=== PATIENT | female | born 1975 | race Caucasian/White ===

== ENCOUNTER 2019-03-03 19:44 | Emergency (ER) | payer OTHER ==
[~2019-03-03] VITALS: Ht 170.2 cm; Wt 119.4 kg
[2019-03-03 19:55] VITALS: BP 123/85
--- NOTE | 2019-03-03 20:06 | NUR ---
PT AMBULATED BACK TO LOBBY. AWAITING AVAILABLE BED.
--- NOTE | 2019-03-03 20:45 | NUR ---
PT BIB DAUGHTER TO ER WITH C/O LEFT SIDE 10/10 MENESES SINCE 0130 AM. TRIED CONTROLLING WITH EXTRA STRENGTH TYLENOL AND ICE PACKS WITH NO RELIEF. LAST TYLENOL TAKEN AT 1500. PT HAS HX OF STROKE X 1 YEAR AGO. DENIES WEAKNESS, NUMBNESS. FACE SYMETRICAL. SPEECH CLEAR, SOMEWHAT DELAYED. STRENGHTH ON BOTH HANDS. PUPIL DAILTES 3 MM EQUALLY. MENESES ON LEFT SIDE OF THE HEAD SINCE MARKET RESEARCHER 10/, UNABLE TO LIE ON HER LFT SIDE. HURTS EVEN WITH SHAKING. PT HAS LOOP RECORDER PLACED IN LFT SIDE OF HEART IN 2018. PT AAOX4, ABLE TO MAKE HER NEEDS KNOWN. CONNECETD TO MONITOR, VS STABLE. MD NOTIFIED OF HER PREVIOUS HX OF STROKE, MD ASSESSING PT. IV STARTED ON HER RT AC 20 G. BLOOD DRAWN FOR THE LAB. WILL CONTINUE TO MONITOR PT. HX STROKE, MIGRANE, SEIZURE RX:- ELIQUIS, PRAZOSIN, TRAZADONE, ASPIRIN, FAMOTIDINE, OMEPRAZOLE, KEPPRA, IRON MULTIVITAMINS.
[2019-03-03] MEDS ORDERED: ONDANSETRON 4 MG/2 ML VIAL IVP ONE (21:00)
[2019-03-03] MEDS ORDERED: MORPHINE SULFATE 4 MG/ML SYR IVP ONE (21:00)
[2019-03-03 21:21] LABS: BASOPHILS # (AUTO) 0.1 K/uL (0.00-0.22); BASOPHILS % (AUTO) 0.8 % (0.0-2.0); EOSINOPHILS # (AUTO) 0.2 K/uL (0-0.4); EOSINOPHILS % (AUTO) 2.6 % (0.0-4.0); HEMATOCRIT 35.4 % (36-48); HEMOGLOBIN 11.5 g/dL (12.0-16.0); LYMPHOCYTES # (AUTO) 1.7 K/uL (2.5-16.5); LYMPHOCYTES % (AUTO) 23.6 % (20.5-51.1); MEAN CORPUSCULAR HEMOGLOBIN 30 pg (27-31); MEAN CORPUSCULAR HGB CONC 33 g/dL (33-37); MEAN CORPUSCULAR VOLUME 92.5 fL (80-94); MONOCYTES # (AUTO) 0.6 K/uL (0.8-1.0); MONOCYTES % (AUTO) 8.3 % (1.7-9.3); NEUTROPHILS # (AUTO) 4.7 K/uL (1.8-7.7); NEUTROPHILS % (AUTO) 64.7 % (42.2-75.2); PLATELET COUNT (AUTO) 314 K/uL (140-450); RED BLOOD CELL COUNT(AUTO) 3.82 MIL/uL (4.20-5.40); RED CELL DISTRIBUTION WIDTH 15.5 % (11.6-13.7); WHITE BLOOD COUNT (AUTO) 7.3 K/uL (4.8-10.8)
--- NOTE | 2019-03-03 21:25 | NUR ---
ASSUMED CARE OF PT AND RECEIVED REPORT FROM RICCARDO ALVAREZ
--- NOTE | 2019-03-03 21:30 | NUR ---
PT AT CT
[2019-03-03 21:34] LABS: PROTHROMBIN TIME 9.2 secs (10.8-13.4)
[2019-03-03 21:40] LABS: ANION GAP 12.8 (8-16); CARBON DIOXIDE 26.8 mmol/L (21-32); CREATININE 0.8 mg/dL (0.6-1.3); POTASSIUM 3.6 mmol/L (3.5-5.1); TOTAL BILIRUBIN 0.2 mg/dL (0.0-1.0)
[2019-03-03 21:42] LABS: CHOL/HDL RATIO 2.3 (1-4.5)
[2019-03-03 21:44] LABS: CREATINE KINASE MB 0.5 ng/mL (0-3.6)
--- NOTE | 2019-03-03 22:20 | NUR ---
PT RESTING IN BED COMFORTABLY, TALKING TO FAMILY. VSS. WILL CONTINUE TO MONITOR.
[2019-03-03 22:45] VITALS: BP 105/67
--- NOTE | 2019-03-03 22:45 | NUR ---
Patient discharged BY DR. MAY with v/s stable. Written and verbal after care instructions given and explained. Patient verbalized understanding. Ambulatory with steady gait. All questions addressed prior to discharge. Advised to follow up with PMD.
== END 2019-03-03 22:45 | disposition home or self-care (01) ==
LOC: MED 19:44
DX: G44.209 Tension-type headache, unspecified, not intractable (principal); F12.10 Cannabis abuse, uncomplicated; Z86.73 Personal history of transient ischemic attack (TIA), and cerebral infarction without residual deficits
CPT/HCPCS: 36415; 70450; 71045; 80053; 80061; 81002; 82550; 82553; 83880; 84484; 85025; 85379; 85610; 85730; 93005; 96374; 96375; 99284; J2270; J2405; Q0092

== ENCOUNTER 2019-08-12 19:36 | Emergency (ER) | payer OTHER ==
[~2019-08-12] VITALS: Ht 170.2 cm; Wt 111.1 kg
[2019-08-12 19:55] VITALS: BP 118/80
--- NOTE | 2019-08-12 19:55 | NUR ---
TO BED # 07 AMBULATORY
--- NOTE | 2019-08-12 20:00 | NUR ---
PT AMBULATED TO BATHROOM. RECIVED REPORT FROM MYNOR GU.
--- NOTE | 2019-08-12 20:05 | NUR ---
44 Y/O FEMALE PT BIB [facility] FOR C/O L FLANK PAIN AND MENESES, 9/10 X 1 WEEK. ADMITS TO N/D BUT NO EPISODES OF VOMITING. TOOK TYENOL WITH INEFFECTIVE RESULTS FOR PAIN. HAD CVA IN 2018 HAS L SIDED WEAKNESS BUT ABLE TO VERBALIZE NEEDS AND IS AMBULATORY. DENIES COUGH. AFEBRILE. RESPIRATIONS ARE EVEN AND UNLABORED. SKIN IS WARM AND DRY TO TOUCH. DAUGHTER AT BEDSIDE. BED IN LOWEST POSITION AND LOCKED IN PLACE. MEDHX: CVA, SEIZURES, HTN ALLERGIES: NKA
[2019-08-12] MEDS ORDERED: NACL 0.9% 1,000 ML IV ONE (20:25)
[2019-08-12] MEDS ORDERED: KETOROLAC 30 MG/ML VIAL IVP ONE (20:25)
[2019-08-12] MEDS ORDERED: ONDANSETRON 4 MG/2 ML VIAL IVP ONE (20:25)
--- NOTE | 2019-08-12 21:10 | NUR ---
18G PLACED IN R AC. IV FLUIDS NACL 1000ML RUNNING CONTINOUSLY. NO REDNESS, SWELLING OR PAIN NOTED IN IV SITE. IV PATENT AND ASYMPTOMATIC.
--- NOTE | 2019-08-12 22:02 | NUR ---
Patient discharged with v/s stable. Written and verbal after care instructions given and explained. Patient alert, oriented and verbalized understanding of instructions. Ambulatory with steady gait. All questions addressed prior to discharge. ID band removed. Patient advised to follow up with PMD. Rx of zofran, flomax, motrin, imodium, norco given. Patient educated on indication of medication including possible reaction and side effects. Opportunity to ask questions provided and answered.
[2019-08-12 22:05] VITALS: BP 108/62
== END 2019-08-12 22:02 | disposition home or self-care (01) ==
LOC: MED 19:36
DX: R10.9 Unspecified abdominal pain (principal); R51 Headache; R11.2 Nausea with vomiting, unspecified; R07.9 Chest pain, unspecified; R19.7 Diarrhea, unspecified; I10 Essential (primary) hypertension; Z86.73 Personal history of transient ischemic attack (TIA), and cerebral infarction without residual deficits; Z90.49 Acquired absence of other specified parts of digestive tract; Z98.890 Other specified postprocedural states
CPT/HCPCS: 81002; 81025; 96374; 96375; 99283; J1885; J2405; J7030

== ENCOUNTER 2019-08-16 18:29 | Emergency (ER) | payer OTHER ==
[~2019-08-16] VITALS: Ht 170.2 cm; Wt 111.1 kg
[2019-08-16 18:33] VITALS: BP 138/82
[2019-08-16] MEDS ORDERED: NACL 0.9% 1,000 ML IV ONE (19:28)
[2019-08-16] MEDS ORDERED: ONDANSETRON 4 MG/2 ML VIAL IVP ONE (19:30)
[2019-08-16] MEDS ORDERED: KETOROLAC 30 MG/ML VIAL IVP ONE (19:30)
--- NOTE | 2019-08-16 19:36 | NUR ---
BLOOD DRAWN ADN GIVEN TO LAB
--- NOTE | 2019-08-16 19:37 | NUR ---
PT ASSESSMENT COMPLETE. PT SEATED UPRIGHT IN BED. WILL CONTINUE TO MONITOR.
[2019-08-16 19:48] LABS: BASOPHILS % (AUTO) 0.5 % (0.0-2.0); EOSINOPHILS # (AUTO) 0.2 K/uL (0-0.4); EOSINOPHILS % (AUTO) 2.4 % (0.0-4.0); HEMATOCRIT 32.8 % (36-48); HEMOGLOBIN 10.5 g/dL (12.0-16.0); LYMPHOCYTES # (AUTO) 1.7 K/uL (2.5-16.5); MEAN CORPUSCULAR HEMOGLOBIN 29 pg (27-31); MEAN CORPUSCULAR HGB CONC 32 g/dL (33-37); MEAN CORPUSCULAR VOLUME 89.3 fL (80-94); MONOCYTES # (AUTO) 0.7 K/uL (0.8-1.0); MONOCYTES % (AUTO) 7.9 % (1.7-9.3); NEUTROPHILS # (AUTO) 6.3 K/uL (1.8-7.7); NEUTROPHILS % (AUTO) 70.2 % (42.2-75.2); PLATELET COUNT (AUTO) 395 K/uL (140-450); RED BLOOD CELL COUNT(AUTO) 3.68 MIL/uL (4.20-5.40); RED CELL DISTRIBUTION WIDTH 15.7 % (11.6-13.7)
--- NOTE | 2019-08-16 20:06 | NUR ---
PT TAKEN TO CT VIA WHEELCHAIR
[2019-08-16 20:14] LABS: CARBON DIOXIDE 28.4 mmol/L (21-32); CREATININE 0.7 mg/dL (0.6-1.3); TOTAL BILIRUBIN 0.2 mg/dL (0.0-1.0)
[2019-08-16 20:19] LABS: ANION GAP 12.2 (8-16); POTASSIUM 4.6 mmol/L (3.5-5.1)
--- NOTE | 2019-08-16 20:21 | NUR ---
PT RETURNED FROM CT VIA WHEELCHAIR
[2019-08-16 20:22] LABS: APPEARANCE,URINE CLEAR (CLEAR); BILIRUBIN,URINE NEGATIVE (NEGATIVE); BLOOD, URINE NEGATIVE (NEGATIVE); COLOR,URINE YELLOW (YELLOW); LEUKOCYTE ESTERASE ,URINE NEGATIVE (NEGATIVE); NITRITE, URINE NEGATIVE (NEGATIVE); UGLUCOSE NEGATIVE (NEGATIVE)
[2019-08-16 21:20] VITALS: BP 118/66
--- NOTE | 2019-08-16 21:20 | NUR ---
Patient discharged with v/s stable. Pt states 4/10 pain. Written and verbal after care instructions given and explained. Patient alert, oriented and verbalized understanding of instructions. Ambulatory with steady gait. All questions addressed prior to discharge. ID band removed. Patient advised to follow up with PMD and when to return to ER. Rx of Naprosyn given. Patient educated on indication of medication including possible reaction and side effects. Opportunity to ask questions provided and answered.
== END 2019-08-16 21:20 | disposition home or self-care (01) ==
LOC: MED 18:29
DX: R10.9 Unspecified abdominal pain (principal); R51 Headache; M79.10 Myalgia, unspecified site; K59.00 Constipation, unspecified; I10 Essential (primary) hypertension; Z86.73 Personal history of transient ischemic attack (TIA), and cerebral infarction without residual deficits; Z95.0 Presence of cardiac pacemaker; Z90.49 Acquired absence of other specified parts of digestive tract; Z98.890 Other specified postprocedural states; Z87.442 Personal history of urinary calculi
CPT/HCPCS: 36415; 74176; 80053; 81003; 81025; 83690; 85025; 96374; 96375; 99284; J1885; J2405; J7030

== ENCOUNTER 2021-02-10 12:39 | Emergency (ER) | payer OTHER ==
[~2021-02-10] VITALS: Ht 170.2 cm; Wt 120.7 kg
[2021-02-10 12:59] VITALS: BP 131/86
--- NOTE | 2021-02-10 13:17 | NUR ---
45/F presents to ED with c/o right upper quadrant abdominal pain. Patient states for 4 days she has been having worsening abdominal pain in her right upper quadrant, radiating to her lower to mid back. Patient states "I had my gall bladder removed but the pain feels the same." States she took 2 Tylenol at home with no relief, states she has episodes of nausea and headache and "pulsating" lower back pain, denies vomiting and diarrhea, denies dysuria or hematuria.
[2021-02-10] MEDS: ONDANSETRON 4 MG/2 ML VIAL IVP ONE (15:10)
[2021-02-10] MEDS: MORPHINE SULFATE 4 MG/ML SYR IVP ONE (15:10)
--- NOTE | 2021-02-10 15:14 | NUR ---
Patient taken to CT by wheel chair.
[2021-02-10 15:20] LABS: BASOPHILS % (AUTO) 0.4 % (0.0-2.0); EOSINOPHILS # (AUTO) 0.2 K/uL (0-0.4); EOSINOPHILS % (AUTO) 2.3 % (0.0-4.0); HEMATOCRIT 29.4 % (36-48); LYMPHOCYTES % (AUTO) 20.4 % (20.5-51.1); MEAN CORPUSCULAR HEMOGLOBIN 25 pg (27-31); MEAN CORPUSCULAR HGB CONC 31 g/dL (33-37); MONOCYTES # (AUTO) 0.9 K/uL (0.8-1.0); NEUTROPHILS # (AUTO) 6.8 K/uL (1.8-7.7); NEUTROPHILS % (AUTO) 67.9 % (42.2-75.2); PLATELET COUNT (AUTO) 424 K/uL (140-450); RED BLOOD CELL COUNT(AUTO) 3.64 MIL/uL (4.20-5.40); RED CELL DISTRIBUTION WIDTH 20.6 % (11.6-13.7); WHITE BLOOD COUNT (AUTO) 9.9 K/uL (4.8-10.8)
[2021-02-10 15:40] LABS: ALBUMIN 3.3 g/dL (3.4-5.0); ANION GAP 10.6 (8-16); CREATININE 0.6 mg/dL (0.6-1.3); POTASSIUM 4.6 mmol/L (3.5-5.1); TOTAL BILIRUBIN 0.3 mg/dL (0.0-1.0)
[2021-02-10] MEDS ORDERED: MIRABULK PO (16:44)
[2021-02-10] MEDS ORDERED: IBUP-2213 PO (16:44)
[2021-02-10 17:07] VITALS: BP 108/72
== END 2021-02-10 17:08 | disposition home or self-care (01) ==
LOC: MED 12:39
DX: R10.11 Right upper quadrant pain (principal); R11.0 Nausea; M54.5 Low back pain; I10 Essential (primary) hypertension; Z86.73 Personal history of transient ischemic attack (TIA), and cerebral infarction without residual deficits; Z90.49 Acquired absence of other specified parts of digestive tract; Z79.899 Other long term (current) drug therapy; Z98.890 Other specified postprocedural states
CPT/HCPCS: 36415; 74176; 80053; 81002; 81025; 83690; 85025; 96374; 96375; 99284; J2270; J2405

== ENCOUNTER 2021-05-29 21:56 | Emergency (ER) | payer OTHER ==
[~2021-05-29] VITALS: Ht 170.2 cm; Wt 117.9 kg
[~2021-05-29 21:56] MED LIST: IBUP-2213 PO; MIRABULK PO
[2021-05-29 22:47] VITALS: BP 141/86
--- NOTE | 2021-05-29 23:00 | NUR ---
AMBULATED BACK TO LOBBY
--- NOTE | 2021-05-29 23:10 | NUR ---
AMBULATED TO BED 1
--- NOTE | 2021-05-29 23:10 | NUR ---
RECEIVED IN BED 1 WITH C/O RIGHT EYELID DROOP. LEFT EYELID HALF CLOSED. DENIES PAIN AT THIS TIME
--- NOTE | 2021-05-29 23:20 | NUR ---
RETURNED FROM CT
[2021-05-29 23:34] LABS: BASOPHILS # (AUTO) 0.1 K/uL (0.00-0.22); BASOPHILS % (AUTO) 0.6 % (0.0-2.0); EOSINOPHILS # (AUTO) 0.2 K/uL (0-0.4); EOSINOPHILS % (AUTO) 2.5 % (0.0-4.0); HEMATOCRIT 30.6 % (36-48); HEMOGLOBIN 9.6 g/dL (12.0-16.0); LYMPHOCYTES # (AUTO) 2.8 K/uL (2.5-16.5); MEAN CORPUSCULAR HEMOGLOBIN 23 pg (27-31); MEAN CORPUSCULAR HGB CONC 31 g/dL (33-37); MEAN CORPUSCULAR VOLUME 74.8 fL (80-94); MONOCYTES # (AUTO) 0.8 K/uL (0.8-1.0); MONOCYTES % (AUTO) 8.5 % (1.7-9.3); NEUTROPHILS # (AUTO) 5.9 K/uL (1.8-7.7); NEUTROPHILS % (AUTO) 60.4 % (42.2-75.2); PLATELET COUNT (AUTO) 487 K/uL (140-450); RED BLOOD CELL COUNT(AUTO) 4.09 MIL/uL (4.20-5.40); RED CELL DISTRIBUTION WIDTH 19.1 % (11.6-13.7); WHITE BLOOD COUNT (AUTO) 9.8 K/uL (4.8-10.8)
[2021-05-29 23:52] LABS: ANION GAP 11.3 (8-16); CARBON DIOXIDE 25.6 mmol/L (21-32); CREATININE 0.7 mg/dL (0.6-1.3); POTASSIUM 3.9 mmol/L (3.5-5.1); TOTAL BILIRUBIN 0.2 mg/dL (0.0-1.0)
[2021-05-30 02:00] VITALS: BP 128/74
--- NOTE | 2021-05-30 02:00 | NUR ---
AWAKJE AND ALERT, AWAITING REEXAM AND DISPOSITION
[2021-05-30] MEDS ORDERED: PROCHLORPERAZINE 10 MG/2 ML VIAL IM ONE (03:40)
[2021-05-30] MEDS ORDERED: KETOROLAC 30 MG/ML VIAL IM ONE (03:40)
[2021-05-30] MEDS ORDERED: diphenhydrAMINE 50 MG/ML VIAL IM ONE (03:40)
--- NOTE | 2021-05-30 03:50 | NUR ---
Patient does not wish to proceed with medical care recommended by . Patient given information related to possible complications, up to and including , which could occur as a result of leaving hospital at this time. Patient verbalizes understanding of risks involved leaving against medical advice. Patient has signed AMA form.
--- NOTE | 2021-05-30 03:50 | NUR ---
Note fabiana in EDM - 05/30/21 at 0411 by TEN Patient discharged with v/s stable. Written and verbal after care instructions given and explained. Patient verbalized understanding. Ambulatory with steady gait. All questions addressed prior to discharge. Advised to follow up with PMD.
== END 2021-05-30 03:50 | disposition left against medical advice (07) ==
LOC: MED 21:56
DX: R29.810 Facial weakness (principal); G43.909 Migraine, unspecified, not intractable, without status migrainosus; I10 Essential (primary) hypertension; F32.9 Major depressive disorder, single episode, unspecified; Z90.49 Acquired absence of other specified parts of digestive tract; Z98.890 Other specified postprocedural states; Z79.899 Other long term (current) drug therapy; Z86.73 Personal history of transient ischemic attack (TIA), and cerebral infarction without residual deficits
CPT/HCPCS: 36415; 70450; 70496; 70498; 71045; 80053; 84484; 85025; 93005; 96372; 99285; J0780; J1200; J1885; Q0092; Q9967

== ENCOUNTER 2021-08-05 09:19 | Emergency (ER) | payer OTHER, SELFPAY ==
[~2021-08-05] VITALS: Ht 170.2 cm; Wt 117.9 kg
[2021-08-05 09:24] VITALS: BP 117/75
--- NOTE | 2021-08-05 10:24 | NUR ---
covid swab collected and walked to lab
[2021-08-05] MEDS ORDERED: ROB PO (10:25)
[2021-08-05 10:40] VITALS: BP 117/75
--- NOTE | 2021-08-05 10:41 | NUR ---
Patient discharged with v/s stable. Written and verbal after care instructions given and explained. Patient alert, oriented and verbalized understanding of instructions. Ambulatory with steady gait. All questions addressed prior to discharge. ID band removed. Patient advised to follow up with PMD. Rx of robatussin given. Patient educated on indication of medication including possible reaction and side effects. Opportunity to ask questions provided and answered.
--- NOTE | 2021-08-05 10:41 | NUR ---
pt assessed and discharged by Dr Holloway
== END 2021-08-05 10:41 | disposition home or self-care (01) ==
LOC: MED 09:19
DX: U07.1 COVID-19 (principal); J06.9 Acute upper respiratory infection, unspecified; I10 Essential (primary) hypertension; Z86.73 Personal history of transient ischemic attack (TIA), and cerebral infarction without residual deficits; Z90.49 Acquired absence of other specified parts of digestive tract; Z86.69 Personal history of other diseases of the nervous system and sense organs; Z98.890 Other specified postprocedural states; Z79.899 Other long term (current) drug therapy; Z79.1 Long term (current) use of non-steroidal anti-inflammatories (NSAID)
CPT/HCPCS: 99283; U0003

== ENCOUNTER 2022-08-17 20:11 | Inpatient (IN) | payer OTHER ==
[~2022-08-17] VITALS: Ht 170.2 cm; Wt 99.8 kg
[~2022-08-17 20:11] MED LIST changes: +ROB PO
[2022-08-17 20:27] VITALS: BP 113/72
--- NOTE | 2022-08-17 20:31 | NUR ---
TO LOBBY A/W BED AMBULATORY
--- NOTE | 2022-08-17 21:05 | NUR ---
Corrie jung in [facility] - 08/17/22 at 2108 by [email or web address] PT TO BED 6
--- NOTE | 2022-08-17 21:08 | NUR ---
PT TAKEN TO BED 5
[2022-08-17] MEDS ORDERED: NACL 0.9% 1,000 ML IV SCH (21:15)
[2022-08-17] MEDS ORDERED: ONDANSETRON 4 MG/2 ML VIAL IVP ONE (21:15)
--- NOTE | 2022-08-17 21:33 | NUR ---
labs collected and given to yard labor supervisor
[2022-08-17 21:37] LABS: BASOPHILS % (AUTO) 0.3 % (0.0-2.0); EOSINOPHILS % (AUTO) 0.4 % (0.0-4.0); HEMATOCRIT 27.5 % (36-48); HEMOGLOBIN 8.3 g/dL (12.0-16.0); LYMPHOCYTES # (AUTO) 1.4 K/uL (2.5-16.5); LYMPHOCYTES % (AUTO) 12.3 % (20.5-51.1); MEAN CORPUSCULAR HEMOGLOBIN 20 pg (27-31); MEAN CORPUSCULAR HGB CONC 30 g/dL (33-37); MEAN CORPUSCULAR VOLUME 65.6 fL (80-94); MONOCYTES # (AUTO) 0.5 K/uL (0.8-1.0); MONOCYTES % (AUTO) 4.8 % (1.7-9.3); NEUTROPHILS # (AUTO) 9.4 K/uL (1.8-7.7); NEUTROPHILS % (AUTO) 82.2 % (42.2-75.2); PLATELET COUNT (AUTO) 372 K/uL (140-450); RED BLOOD CELL COUNT(AUTO) 4.19 MIL/uL (4.20-5.40); RED CELL DISTRIBUTION WIDTH 19.5 % (11.6-13.7); WHITE BLOOD COUNT (AUTO) 11.4 K/uL (4.8-10.8)
--- NOTE | 2022-08-17 21:38 | NUR ---
Dr. Hunt examining patient.
[2022-08-17 21:40] LABS: APPEARANCE,URINE SL CLOUDY (CLEAR); BILIRUBIN,URINE NEGATIVE (NEGATIVE); BLOOD, URINE 3+ (NEGATIVE); COLOR,URINE YELLOW (YELLOW); LEUKOCYTE ESTERASE ,URINE NEGATIVE (NEGATIVE); NITRITE, URINE NEGATIVE (NEGATIVE); PH,URINE 6.5 (5.0-9.0); UGLUCOSE 3+ (NEGATIVE)
[2022-08-17] MEDS ORDERED: MORPHINE SULFATE 4 MG/ML SYR IVP ONE (21:45)
[2022-08-17] MEDS ORDERED: MORPHINE SULFATE 4 MG/ML SYR ONE (21:47)
[2022-08-17 21:51] LABS: OTHER CASTS, URINE None Seen /LPF (None Seen); RBC,URINE 11-20 (MOD) /HPF (0-5); WBC,URINE 0-5 /HPF (0-5)
--- NOTE | 2022-08-17 21:56 | NUR ---
Dr. Hunt by bedside
[2022-08-17 21:59] LABS: CARBON DIOXIDE 25.7 mmol/L (21-32); CREATININE 0.8 mg/dL (0.6-1.3); POTASSIUM 3.7 mmol/L (3.5-5.1); TOTAL BILIRUBIN 0.6 mg/dL (0.0-1.0)
--- NOTE | 2022-08-17 22:25 | NUR ---
COVID SWAB COLLECTED AND SENT TO LAB
--- NOTE | 2022-08-17 22:26 | NUR ---
PT RETURN FROM RADIOLOGY
[2022-08-18] MEDS ORDERED: LEVOFLOXACIN 500 MG/D5W PREMIX 100 ML IV ONE (00:10)
[2022-08-18] MEDS ORDERED: metroNIDAZOLE 500 MG/NS PREMIX 100 ML IV ONE (00:10)
--- NOTE | 2022-08-18 00:37 | NUR ---
BLOOD CULTURES ORDERD AND COLLECTED
--- NOTE | 2022-08-18 00:53 | NUR ---
PENDING ADMISSION ORDERS
[2022-08-18] MEDS ORDERED: MORPHINE SULFATE 4 MG/ML SYR IVP ONE (00:55)
--- NOTE | 2022-08-18 00:58 | NUR ---
Pt assisted to restroom. Gait steady.
--- NOTE | 2022-08-18 01:15 | NUR ---
C/o abd pain 02/08 and morphine given as ordered
--- NOTE | 2022-08-18 01:21 | NUR ---
Note fabiana in EDM - 08/18/22 at 0244 by [email or web address] Patient discharged with v/s stable. Written and verbal after care instructions given and explained. Patient verbalized understanding. Ambulatory with steady gait. All questions addressed prior to discharge. Advised to follow up with PMD.
--- NOTE | 2022-08-18 01:48 | NUR ---
Resting comfortably at this time. No s/s discomfort.
[2022-08-18] MEDS ORDERED: FOLI1TAB90 PO (03:25)
[2022-08-18] MEDS ORDERED: PANT40EC56 PO (03:25)
[2022-08-18] MEDS ORDERED: METH-1213 PO (03:25)
[2022-08-18] MEDS ORDERED: FREM225A SQ (03:25)
--- NOTE | 2022-08-18 03:28 | NUR ---
MED RECONCILE AND BELONGINGS COMPLETED
--- NOTE | 2022-08-18 04:10 | NUR ---
Assisted to restroom, gait steady.
[2022-08-18] MEDS: NACL 0.9% 1,000 ML IV SCH ×3 (04:32→15:41)
[2022-08-18] MEDS: ACETAMINOPHEN 325 MG TAB PO PRN (04:42)
[2022-08-18] MEDS: ONDANSETRON 4 MG/2 ML VIAL IVP PRN ×4 (04:43→20:21)
--- NOTE | 2022-08-18 04:45 | NUR ---
Pt c/o nausea and abdominal pain. Zofran and tylenol given as ordered.
--- NOTE | 2022-08-18 05:20 | NUR ---
Ambulated to restroom gait steady
[2022-08-18] MEDS: MORPHINE SULFATE 2 MG/ML SYR IVP PRN ×3 (05:28→14:14)
--- NOTE | 2022-08-18 05:28 | NUR ---
c/o 01/09 abd pain. morphine given as ordered.
--- NOTE | 2022-08-18 05:50 | NUR ---
PT MOVED TO ER 9
--- NOTE | 2022-08-18 07:27 | NUR ---
Report given for transfer of care to [facility]
--- NOTE | 2022-08-18 07:28 | NUR ---
Report recieved from RICCARDO Paz for transfer of care.
[2022-08-18] MEDS ORDERED: DEXTROSE 50% 50 ML SYR IVP PRN (07:35)
[2022-08-18] MEDS ORDERED: LEVOFLOXACIN 750 MG/D5W PREMIX 150 ML IV SCH (07:35)
--- NOTE | 2022-08-18 08:08 | NUR ---
Patient will be admitted to care of Dr. Erickson. Admited to Telemetry. Will go to room ICU 6. Belongings list completed. Report to RICCARDO Suazo .
[2022-08-18 08:20] VITALS: BP 137/106
--- NOTE | 2022-08-18 08:20 | NUR ---
Admitted from , with chief complaint of abdominal pain for 3 days radiate to lower back. diarrhea with blood per pt statement. 47 y/o ,Female, Cooperative, oriented to call light, bed, phone,television, bathroom, smoking policy, visiting hours, procedures, ID bracelet on. Belongings list checked.
[2022-08-18] MEDS: PANTOPRAZOLE 40 MG INJ VIAL IVP SCH ×2 (08:48→20:20)
--- NOTE | 2022-08-18 10:06 | NUR ---
PATIENT HAS BEEN SCREENED AND CATEGORIZED MODERATE NUTRITION RISK. PATIENT WILL BE SEEN WITHIN 3-5 DAYS OF ADMISSION. REVIEWED BY ZACH GREEN RD
[2022-08-18] MEDS: BLOOD GLUCOSE MONITORING 1 DEV DEV FS SCH ×3 (11:50→20:58)
--- NOTE | 2022-08-18 11:57 | NUR ---
PATIENT ABLE TO HAVE LOOSE GREENISH BM, UNABLE TO COLLECT MIXED WITH URINE. WILL TRY AGAIN LATER.
[2022-08-18 12:00] VITALS: BP 109/70
[2022-08-18] MEDS: INSULIN LISPRO SLIDING SCALE 100 UNITS/ML VIAL SUBQ PRN ×3 (12:09→20:57)
[2022-08-18] MEDS: metroNIDAZOLE 500 MG/NS PREMIX 100 ML IV SCH ×2 (12:43→20:20)
[2022-08-18 16:00] VITALS: BP 103/63
[2022-08-18] MEDS: MORPHINE SULFATE 4 MG/ML SYR IVP PRN ×2 (17:44→23:59)
--- NOTE | 2022-08-18 18:46 | NUR ---
all needs mets. vital sign stable, afebrile. no s/s of distress. iv access patent, intact , no swelling or infiltration noted. ivf infusing well. updated about the poc. verbalized understanding.
--- NOTE | 2022-08-18 19:00 | NUR ---
rec'd pt form rn AURY to assume plan of care. Pt's A/Ox4, c/o pain , morphine not due yet, pt understood. asking for ativan instead. Pt's ambulates to the BSC with no assist, gait steady as observed. Stable vital signs. Pt's tele status, just waiting for open bed from tele. Basic bedside needs attended. POC discussed safety and ski care protocol on progress. Call light in reach.
[2022-08-18] MEDS: LORazepam 2 MG/ML VIAL IVP PRN (20:21)
[2022-08-18 23:28] VITALS: BP 102/61
[2022-08-19] MEDS: NACL 0.9% 1,000 ML IV SCH ×3 (00:15→19:50)
--- NOTE | 2022-08-19 02:52 | NUR ---
Report was given to quarrying manager Melvina to assume plan of care. Pt was aware she'll be transferred to MS/TELE to room 115. Pt's stable, resting comfortably. Still having diarrhea. Used bedside commode. No resp distress, on room air sats .97%. Self care, independent and asking pain intermittently. On IVF NS 125cc/hr and on atbx therapy. Pt said will notify family about her transfer to another unit. All belongings with the pt at the bedside.
--- NOTE | 2022-08-19 03:10 | NUR ---
RECEIVED PATIENT FROM ICU VIA WHEELCHAIR AAOX4 ON ROOM AIR. NO DISTRESS. NO COMPLAINTS OF PAIN AT THIS TIME. AMBULATORY. CALL LIGHT ON EASY REACH. SAFETY MEASURES IN PLACE. HANGED A NEW BAG OF IVF NS INFUSING 125 ML/HR.
--- NOTE | 2022-08-19 03:10 | NUR ---
0300: wheeled out pt to tele room 115, transported by warehouse shift supervisor Martin. pt has cell phone, cell communications representative and clothings as witnessed by warehouse shift supervisor.
[2022-08-19] MEDS: LORazepam 2 MG/ML VIAL IVP PRN ×2 (03:29→11:25)
[2022-08-19 04:00] VITALS: BP 110/71
[2022-08-19] MEDS: metroNIDAZOLE 500 MG/NS PREMIX 100 ML IV SCH ×3 (04:46→20:24)
[2022-08-19] MEDS: INSULIN LISPRO SLIDING SCALE 100 UNITS/ML VIAL SUBQ PRN ×3 (06:40→21:26)
[2022-08-19] MEDS: BLOOD GLUCOSE MONITORING 1 DEV DEV FS SCH ×5 (06:40→21:22)
--- NOTE | 2022-08-19 06:40 | NUR ---
CHECKED BLOOD SUGAR WAS 192, ADMINISTERED HUMALOG INSULIN ORDERED PER SLIDING SCALE.
--- NOTE | 2022-08-19 07:29 | NUR ---
GAVE REPORT TO AM NURSE TREJO FOR CONTINUITY OF CARE.
[2022-08-19 07:31] LABS: BASOPHILS % (AUTO) 0.4 % (0.0-2.0); EOSINOPHILS # (AUTO) 0.2 K/uL (0-0.4); HEMATOCRIT 25.4 % (36-48); HEMOGLOBIN 7.6 g/dL (12.0-16.0); LYMPHOCYTES # (AUTO) 1.3 K/uL (2.5-16.5); LYMPHOCYTES % (AUTO) 22.2 % (20.5-51.1); MEAN CORPUSCULAR HEMOGLOBIN 20 pg (27-31); MEAN CORPUSCULAR HGB CONC 30 g/dL (33-37); MEAN CORPUSCULAR VOLUME 67.8 fL (80-94); MONOCYTES # (AUTO) 0.6 K/uL (0.8-1.0); MONOCYTES % (AUTO) 9.5 % (1.7-9.3); NEUTROPHILS # (AUTO) 3.9 K/uL (1.8-7.7); NEUTROPHILS % (AUTO) 64.9 % (42.2-75.2); PLATELET COUNT (AUTO) 301 K/uL (140-450); RED BLOOD CELL COUNT(AUTO) 3.75 MIL/uL (4.20-5.40); RED CELL DISTRIBUTION WIDTH 19.4 % (11.6-13.7)
[2022-08-19 08:00] VITALS: BP 117/78
[2022-08-19] MEDS: LEVOFLOXACIN 750 MG/D5W PREMIX 150 ML IV SCH (09:00)
[2022-08-19] MEDS: PANTOPRAZOLE 40 MG INJ VIAL IVP SCH ×2 (09:00→20:33)
[2022-08-19] MEDS: ENOXAPARIN 40 MG/0.4 ML SYR SUBQ SCH (09:00)
[2022-08-19 09:25] LABS: ALBUMIN 2.8 g/dL (3.4-5.0); ANION GAP 12.9 (8-16); CARBON DIOXIDE 24.4 mmol/L (21-32); CREATININE 0.6 mg/dL (0.6-1.3); MAGNESIUM 1.6 mg/dL (1.8-2.4); POTASSIUM 3.3 mmol/L (3.5-5.1); TOTAL BILIRUBIN 0.5 mg/dL (0.0-1.0)
[2022-08-19] MEDS: ONDANSETRON 4 MG/2 ML VIAL IVP PRN ×3 (10:47→17:22)
[2022-08-19] MEDS: MORPHINE SULFATE 4 MG/ML SYR IVP PRN ×3 (10:55→17:22)
--- NOTE | 2022-08-19 15:17 | NUR ---
DC PLANNING SW MET WITH PT AT BEDSIDE TO COMPLETE ASSESSMENT. PT ALERT AND ORIENTED AND ABLE TO PROVIDE ALL OF HER OWN INFORMATION. PT REPORTS RESIDING IN A TWO STORY HOME WITH HER FAMILY (, DAUGHTER AND MOTHER) AT THE ADDRESS LISTED ON FILE. PT IDENTIFIED PATRICA RAMOS, PARTNER, AND ARTHUR WILEY, MOM, EMERGENCY CONTACTS. PT DENIES AD IN PLACE AND ACCEPTED AD OFFERED BY SW. PT REPORTS LAST VISIT W/PCP 6 MONTHS AGO. PT REPORTS MEETING WITH SEVERAL DR'S OVER THE LAST FEW MONTHS. PT REPORTS LAST VISIT WITH LABORATORY MONITOR IN JUL, GI IN JUN, DENTAL HYGIENIST MOBILE COORDINATOR IN DECEMBER, AND UROLOGIST ON AUG 04. PT REPORTS MEDICATION COMPLIANCE AND REPORTS RECEIVING MEDICATION FROM [facility] OF [address] ON [address] IN [place], WHEN NEEDED. PT REPORTS UTILIZING FWW, [place] AND REPORTS SHE REQUIRES OCCASIONAL ASSISTANCE WITH ADL'S THAT HER FAMILY AIDS WITH. PT DENIES HX OF DIABETES, DIALYSIS TX. PT REPORTS MENTAL HEALTH HX OF DEPRESSION AND REPORTS HAVING RX OF PROZAC WHICH SHE HAS NOT BEGAN TAKING. PT REPORTS SHE WILL MOST LIKELY START SOON. PT REPORTS ATTENDING SUPPORT GROUP ON TUESDAYS TO AID IN DEPRESSION SX . PT REPORTS FINDING SUPPORT GROUPS HELPFUL. PT DENIES HX OF HH, SNF PLACEMENT. PT REPORTS DC PLAN IS TO RETURN HOME FAMILY PROVIDING TRANSPORTATION, WHEN MEDICALLY STABLE. Addendum: 08/19/22 at 1520 by Won SMALLWOOD Amended: Links added.
--- NOTE | 2022-08-19 19:35 | NUR ---
RECEIVED PATIENT IN BED LYING, APPEARS COMFORTABLE ON ROOM AIR. NO COMPLAINTS OF PAIN AT THIS TIME. ABLE TO AMBULATE TO THE RESTROOM W/O ASSIST. IVF NS INFUSING AT 125 ML/HR. CALL LIGHT WITHIN REACH. BED WHEELS LOCKED FOR SAFETY.
--- NOTE | 2022-08-19 20:24 | NUR ---
ADMINISTERED SCHEDULED DUE MEDICATION.
[2022-08-19] MEDS: MORPHINE SULFATE 2 MG/ML SYR IVP PRN (22:14)
[2022-08-20] VITALS: BP 99/59
[2022-08-20] MEDS: NACL 0.9% 1,000 ML IV SCH ×3 (03:50→21:44)
[2022-08-20 04:00] VITALS: BP 96/52
[2022-08-20] MEDS: ONDANSETRON 4 MG/2 ML VIAL IVP PRN ×3 (04:27→22:16)
[2022-08-20] MEDS: metroNIDAZOLE 500 MG/NS PREMIX 100 ML IV SCH ×3 (04:27→21:45)
[2022-08-20] MEDS: MORPHINE SULFATE 2 MG/ML SYR IVP PRN ×3 (04:28→15:04)
--- NOTE | 2022-08-20 04:28 | NUR ---
COMPLAINED OF MODERATE ABDOMINAL PAIN, MEDICATED WITH MORPHINE IVP.
--- NOTE | 2022-08-20 05:05 | NUR ---
PLACED A CALL TO DR SMALLS D/T BP-96/52 P-91 AND POTASSIUM LEVEL 3.[address] SMALLS GAVE ORDERS, NOTED AND CARRIED OUT.
[2022-08-20] MEDS: NACL 0.9% 500 ML IV SCH ×6 (05:15→07:50)
[2022-08-20] MEDS ORDERED: POTASSIUM CHLORIDE 10 MEQ TABER PO ONE (05:15)
[2022-08-20] MEDS: BLOOD GLUCOSE MONITORING 1 DEV DEV FS SCH ×4 (06:38→21:48)
[2022-08-20] MEDS: INSULIN LISPRO SLIDING SCALE 100 UNITS/ML VIAL SUBQ PRN ×4 (06:38→21:47)
[2022-08-20] MEDS: ACETAMINOPHEN 325 MG TAB PO PRN ×2 (06:52→18:28)
--- NOTE | 2022-08-20 06:52 | NUR ---
PATIENT COMPLAINED OF HEADACHE, MEDICATED WITH TYLENOL PRN.
--- NOTE | 2022-08-20 07:26 | NUR ---
BEDSIDE REPORT GIVEN TO AM SHIFT NURSE ABBY FOR CONTINUITY OF CARE. PATIENT HAD XI SOFT BM THROUGHOUT THE SHIFT. V/S: BP 115/70 P-85 O2 SAT- 97 R-18 T-97.1.
[2022-08-20 08:00] VITALS: BP 109/67
[2022-08-20] MEDS ORDERED: MAG SULF 2000 MG/WATER PREMIX 50 ML IV SCH (09:00)
[2022-08-20] MEDS ORDERED: VANCOMYCIN 500 MG VIAL PO SCH (09:00)
[2022-08-20] MEDS: LEVOFLOXACIN 750 MG/D5W PREMIX 150 ML IV SCH (10:00)
[2022-08-20] MEDS: PANTOPRAZOLE 40 MG INJ VIAL IVP SCH ×2 (10:02→21:45)
[2022-08-20] MEDS: ENOXAPARIN 40 MG/0.4 ML SYR SUBQ SCH (10:08)
[2022-08-20] MEDS: VANCOMYCIN HCL 25 MG/ML SOLN PO SCH ×3 (10:12→17:23)
[2022-08-20 16:00] VITALS: BP 105/61
--- NOTE | 2022-08-20 19:14 | NUR ---
ENDORSE PATIENT IN STABLE CONDITION TO PM SHIFT NURSE WHILE NS INFUSING VIA R. WRIST PIV SITE. DR. BAUTISTA SAW PATIENT AND AWARE PATIENT IS ON DIARRHEA AND POSITIVE FOR C. DIFF AND NEWLY DIAGNOSIS FOR DM
--- NOTE | 2022-08-20 19:25 | NUR ---
RECEIVED PATIENT FROM NURSE FOR CONYINUITY OF CARE. PT IS STABLE
--- NOTE | 2022-08-21 | NUR ---
PATIENT ASLEEP, NO DISTRESS NOTED
[2022-08-21] MEDS: VANCOMYCIN HCL 25 MG/ML SOLN PO SCH ×5 (00:17→23:11)
[2022-08-21] MEDS: MORPHINE SULFATE 2 MG/ML SYR IVP PRN ×5 (01:06→20:00)
[2022-08-21] MEDS: NACL 0.9% 1,000 ML IV SCH ×3 (03:50→19:42)
[2022-08-21 04:00] VITALS: BP 122/69
[2022-08-21] MEDS: ONDANSETRON 4 MG/2 ML VIAL IVP PRN ×3 (04:19→18:08)
[2022-08-21] MEDS: ACETAMINOPHEN 325 MG TAB PO PRN (04:20)
[2022-08-21] MEDS: metroNIDAZOLE 500 MG/NS PREMIX 100 ML IV SCH ×3 (04:57→20:01)
[2022-08-21] MEDS: INSULIN LISPRO SLIDING SCALE 100 UNITS/ML VIAL SUBQ PRN ×4 (06:32→20:12)
[2022-08-21] MEDS: BLOOD GLUCOSE MONITORING 1 DEV DEV FS SCH ×4 (06:34→20:12)
--- NOTE | 2022-08-21 07:24 | NUR ---
RECEIVED REPORT FROM FLAT IRONER NURSE ROSALINE FOR CONTINUITY OF CARE. PT SLEEPING, EASILY AROUSABLE BY VERBAL STIMULI. RESPIRATIONS EVEN AND UNLABORED ON RA. AMBULATORY. A&O4, ABLE TO COMMUNICATE NEEDS. CALL LIGHT WITHIN REACH. SAFETY PRECAUTIONS IN PLACE.
[2022-08-21 08:00] VITALS: BP 103/69
--- NOTE | 2022-08-21 08:06 | NUR ---
Patient's Plan of Care was discussed and reviewed with POPCORN MACHINE OPERATOR:
[2022-08-21] MEDS: PANTOPRAZOLE 40 MG INJ VIAL IVP SCH ×2 (09:00→20:01)
[2022-08-21 09:02] LABS: BASOPHILS % (AUTO) 0.3 % (0.0-2.0); EOSINOPHILS # (AUTO) 0.1 K/uL (0-0.4); HEMOGLOBIN 7.3 g/dL (12.0-16.0); LYMPHOCYTES # (AUTO) 1.6 K/uL (2.5-16.5); LYMPHOCYTES % (AUTO) 23.6 % (20.5-51.1); MEAN CORPUSCULAR HEMOGLOBIN 20 pg (27-31); MEAN CORPUSCULAR HGB CONC 30 g/dL (33-37); MEAN CORPUSCULAR VOLUME 67.2 fL (80-94); MONOCYTES # (AUTO) 0.5 K/uL (0.8-1.0); MONOCYTES % (AUTO) 7.8 % (1.7-9.3); NEUTROPHILS # (AUTO) 4.5 K/uL (1.8-7.7); NEUTROPHILS % (AUTO) 66.3 % (42.2-75.2); PLATELET COUNT (AUTO) 319 K/uL (140-450); RED BLOOD CELL COUNT(AUTO) 3.57 MIL/uL (4.20-5.40); RED CELL DISTRIBUTION WIDTH 20.5 % (11.6-13.7); WHITE BLOOD COUNT (AUTO) 6.8 K/uL (4.8-10.8)
[2022-08-21] MEDS: ENOXAPARIN 40 MG/0.4 ML SYR SUBQ SCH (09:10)
--- NOTE | 2022-08-21 09:10 | NUR ---
SCHEDULED MEDICATIONS GIVEN. TOLERATING WELL.
[2022-08-21 10:00] LABS: ANION GAP 10.7 (8-16); CARBON DIOXIDE 25.5 mmol/L (21-32); CREATININE 0.5 mg/dL (0.6-1.3); POTASSIUM 3.2 mmol/L (3.5-5.1)
--- NOTE | 2022-08-21 12:00 | NUR ---
BS CHECK 202. INSULIN WAS GIVEN PER SLIDING SCALE.
--- NOTE | 2022-08-21 12:35 | NUR ---
PT ATE LUNCH. TOLERATING DIET WELL. NO C/O OF NAUSEA AND VOMITING. PT STATED THAT SHE HAD A GOOD LUNCH.
[2022-08-21] MEDS: POTASSIUM CHLORIDE 10 MEQ TABER PO PRN (15:14)
--- NOTE | 2022-08-21 17:09 | NUR ---
BS CHECK 240. INSULIN WAS GIVEN PER SLIDING SCALE.
--- NOTE | 2022-08-21 19:09 | NUR ---
BEDSIDE REPORT GIVEN TO NIGHT NURSE AYSHA FOR CONTINUITY OF CARE. REMAINS STABLE.
--- NOTE | 2022-08-21 19:10 | NUR ---
RECEIVED PATIENT IN BED, AWAKE, ALERT AND ORIENTED. DAUGHTER AT THE BEDSIDE. BED IN THE LOWEST AND LOCKED POSITION FOR SAFETY. NO ACUTE RESPIRATORY DISTRESS NOTED. SKIN WARM AN DRY TO TOUCH. DENIES PAIN AT THIS TIME. CALL LIGHT IN REACH.
--- NOTE | 2022-08-21 19:15 | NUR ---
RECEIVED PT IN BED AWAKE, ALERT AND ORIENTED X 4. DENIES PAIN. DENIES SHORTNESS OF BREATH. SKIN WARM AND DRY TO TOUCH. SAFETY PRECAUTIONS IN PLACE, CALL LIGHT IN REACH, ENCOURAGED TO CALL IF ASSISTANCE IS NEEDED, PT VERBALLY ACKNOWLEDGED.
[2022-08-21 20:00] VITALS: BP 108/62
--- NOTE | 2022-08-22 00:13 | NUR ---
PATIENT IS ASLEEP. NO S/SX OF PAIN NOR DISCOMFORT. CALL LIGHT IN REACH,
[2022-08-22] MEDS: MORPHINE SULFATE 4 MG/ML SYR IVP PRN ×3 (00:55→19:50)
--- NOTE | 2022-08-22 02:11 | NUR ---
ROUNDING DONE. PT ASLEEP. BREATHING EVEN AND UNLABORED. CALL LIGHT IN REACH.
[2022-08-22] MEDS: NACL 0.9% 1,000 ML IV SCH ×3 (02:51→19:50)
[2022-08-22] MEDS: ONDANSETRON 4 MG/2 ML VIAL IVP PRN ×2 (03:27→15:08)
[2022-08-22 04:00] VITALS: BP 118/61
[2022-08-22] MEDS: metroNIDAZOLE 500 MG/NS PREMIX 100 ML IV SCH ×3 (04:13→20:13)
[2022-08-22] MEDS: VANCOMYCIN HCL 25 MG/ML SOLN PO SCH ×4 (05:06→23:11)
[2022-08-22] MEDS: INSULIN LISPRO SLIDING SCALE 100 UNITS/ML VIAL SUBQ PRN ×4 (06:31→20:15)
[2022-08-22] MEDS: BLOOD GLUCOSE MONITORING 1 DEV DEV FS SCH ×4 (06:31→20:14)
--- NOTE | 2022-08-22 06:32 | NUR ---
ALL NEEDS ATTENDED TO. NO DISTRESS NOTED. SAFETY PRECAUTIONS MAINTAINED DURING THE SHIFT, CALL LIGHT REMAINS WITHIN REACH.
[2022-08-22 07:08] LABS: BASOPHILS % (AUTO) 0.5 % (0.0-2.0); EOSINOPHILS # (AUTO) 0.1 K/uL (0-0.4); EOSINOPHILS % (AUTO) 1.8 % (0.0-4.0); HEMOGLOBIN 7.1 g/dL (12.0-16.0); LYMPHOCYTES # (AUTO) 1.8 K/uL (2.5-16.5); LYMPHOCYTES % (AUTO) 21.8 % (20.5-51.1); MEAN CORPUSCULAR HEMOGLOBIN 20 pg (27-31); MEAN CORPUSCULAR HGB CONC 31 g/dL (33-37); MEAN CORPUSCULAR VOLUME 65.5 fL (80-94); MONOCYTES # (AUTO) 0.5 K/uL (0.8-1.0); NEUTROPHILS # (AUTO) 5.6 K/uL (1.8-7.7); NEUTROPHILS % (AUTO) 69.9 % (42.2-75.2); PLATELET COUNT (AUTO) 334 K/uL (140-450); RED BLOOD CELL COUNT(AUTO) 3.52 MIL/uL (4.20-5.40); RED CELL DISTRIBUTION WIDTH 20.1 % (11.6-13.7); WHITE BLOOD COUNT (AUTO) 8.1 K/uL (4.8-10.8)
[2022-08-22 07:12] LABS: ANION GAP 10.1 (8-16); CARBON DIOXIDE 25.2 mmol/L (21-32); CREATININE 0.5 mg/dL (0.6-1.3); POTASSIUM 3.3 mmol/L (3.5-5.1)
--- NOTE | 2022-08-22 07:18 | NUR ---
RECEIVED REPORT FROM OB SCRUB TECH NURSE AYSHA FOR CONTINUITY OF CARE. PT AWAKE IN BED. A&O4, ABLE TO MAKE NEEDS KNOWN. RESPIRATIONS EVEN AND UNLABORED ON RA. NO COMPLAINTS OF PAIN. SKIN INATCT, WARM AND DRY TO TOUCH. IV SITE ON RIGHT WRIST 22G, INFUSING IVF. CALL LIGHT WITHIN REACH. SAFETY PRECAUTIONS IN PLACE.
[2022-08-22 08:00] VITALS: BP 113/71
[2022-08-22] MEDS: POTASSIUM CHLORIDE 10 MEQ TABER PO PRN (09:25)
[2022-08-22] MEDS: ENOXAPARIN 40 MG/0.4 ML SYR SUBQ SCH (09:27)
--- NOTE | 2022-08-22 09:30 | NUR ---
ADMINISTERED DUE MEDS. KDUR GIVEN FOR POTASSIUM 3.3. PT TOLERATED WELL.
[2022-08-22] MEDS: PANTOPRAZOLE 40 MG INJ VIAL IVP SCH ×2 (09:49→20:13)
[2022-08-22] MEDS: MORPHINE SULFATE 2 MG/ML SYR IVP PRN ×2 (09:51→15:00)
--- NOTE | 2022-08-22 09:51 | NUR ---
SCHEDULED IV MED AND PRN PAIN MED GIVEN BY RICCARDO DODD. PT C/O OF ABD PAIN 03/11. V/S WITHIN NORMAL LIMIT.
--- NOTE | 2022-08-22 12:07 | NUR ---
SLIDING SCALE INSULIN GIVEN FOR BS 215.
[2022-08-22] MEDS: MAG SULF 2000 MG/WATER PREMIX 50 ML IV PRN (13:36)
[2022-08-22 16:00] VITALS: BP 102/52
--- NOTE | 2022-08-22 16:30 | NUR ---
BLOOD SUGAR CHECK DONE. SLIDING SCALE INSULIN ADMINISTERED.
--- NOTE | 2022-08-22 18:21 | NUR ---
DR SHAW AT BEDSIDE.
--- NOTE | 2022-08-22 19:03 | NUR ---
ENDORSED PT TO AIR HAMMER STRIPPER NURSE AYSHA FOR CONTINUITY OF CARE. ALL NEEDS MET THROUGHOUT SHIFT. NO EPISODES OF NAUSEA AND VOMITING. PER PT, HER STOOL WAS FORMED AND SOFT WITHOUT BLOOD. PT IS IN STABLE CONDITION.
--- NOTE | 2022-08-22 19:10 | NUR ---
RECEIVED PT IN BED AWAKE,ALERT AND ORIENTED X 4. DENIES PAIN AT THIS TIME. DENIES SHORTNESS OF BREATH. SKIN WARM AND DRY TO TOUCH. IVF INFUSING WELL ORDERED. CONTACT ISOLATION IN PLACE. BED IN THE LOWEST AND LOCKED POSITION FOR SAFETY, CALL LIGHT IN REACH, ENCOURAGED TO CALL IF ASSISTANCE IS NEEDED, PT VERBALLY ACKNOWLEDGED.
[2022-08-22 20:00] VITALS: BP 109/64
--- NOTE | 2022-08-22 20:15 | NUR ---
DUE MEDICATIONS GIVEN ORDERED.
--- NOTE | 2022-08-23 00:06 | NUR ---
PATIENT IS ASLEEP. BREATHING EVEN AND UNLABORED. CALL LIGHT IN REACH.
[2022-08-23] MEDS: MORPHINE SULFATE 2 MG/ML SYR IVP PRN ×2 (02:14→21:44)
[2022-08-23 04:00] VITALS: BP 126/75
--- NOTE | 2022-08-23 04:13 | NUR ---
PATIENT IS ASLEEP. NO S/SX OF PAIN NOR DISCOMFORT. CALL LIGHT IN REACH.
[2022-08-23] MEDS: metroNIDAZOLE 500 MG/NS PREMIX 100 ML IV SCH ×3 (05:08→21:33)
[2022-08-23] MEDS: VANCOMYCIN HCL 25 MG/ML SOLN PO SCH ×4 (05:08→23:51)
[2022-08-23] MEDS: MORPHINE SULFATE 4 MG/ML SYR IVP PRN ×2 (06:13→12:02)
[2022-08-23] MEDS: BLOOD GLUCOSE MONITORING 1 DEV DEV FS SCH ×4 (06:33→21:06)
[2022-08-23] MEDS: INSULIN LISPRO SLIDING SCALE 100 UNITS/ML VIAL SUBQ PRN ×4 (06:34→21:07)
[2022-08-23] MEDS: ONDANSETRON 4 MG/2 ML VIAL IVP PRN ×2 (06:34→14:26)
--- NOTE | 2022-08-23 06:40 | NUR ---
PATIENT IS AWAKE,ALERT AND ORIENTED. MEDICATION GIVEN FOR PAIN AND FOR NAUSEA. RE INSERTED IV IN THE RIGHT WRIST X1 ATTEMPT GAUGE 22, PREVIOUS IV SITE LEAKING REMOVED WITH INTACT CANNULA, PT TOLERATED WELL. ALL NEEDS ATTENDED TO. NO DISTRESS NOTED. SAFETY PRECAUTIONS IN PLACE, CALL LIGHT REMAINS WITHIN REACH.
[2022-08-23 07:26] LABS: ANION GAP 10.3 (8-16); CREATININE 0.6 mg/dL (0.6-1.3); POTASSIUM 3.3 mmol/L (3.5-5.1)
[2022-08-23 07:30] LABS: BASOPHILS % (AUTO) 0.2 % (0.0-2.0); EOSINOPHILS # (AUTO) 0.2 K/uL (0-0.4); EOSINOPHILS % (AUTO) 2.9 % (0.0-4.0); HEMATOCRIT 22.9 % (36-48); LYMPHOCYTES # (AUTO) 1.7 K/uL (2.5-16.5); LYMPHOCYTES % (AUTO) 23.8 % (20.5-51.1); MEAN CORPUSCULAR HEMOGLOBIN 20 pg (27-31); MEAN CORPUSCULAR HGB CONC 30 g/dL (33-37); MEAN CORPUSCULAR VOLUME 67.6 fL (80-94); MONOCYTES # (AUTO) 0.6 K/uL (0.8-1.0); MONOCYTES % (AUTO) 7.9 % (1.7-9.3); NEUTROPHILS # (AUTO) 4.8 K/uL (1.8-7.7); NEUTROPHILS % (AUTO) 65.2 % (42.2-75.2); PLATELET COUNT (AUTO) 320 K/uL (140-450); RED BLOOD CELL COUNT(AUTO) 3.39 MIL/uL (4.20-5.40); RED CELL DISTRIBUTION WIDTH 20.4 % (11.6-13.7); WHITE BLOOD COUNT (AUTO) 7.3 K/uL (4.8-10.8)
[2022-08-23 08:00] VITALS: BP 109/64
[2022-08-23 08:21] LABS: HEMOGLOBIN 6.9 g/dL (12.0-16.0)
[2022-08-23] MEDS: PANTOPRAZOLE 40 MG INJ VIAL IVP SCH ×2 (09:08→21:33)
[2022-08-23] MEDS: POTASSIUM CHLORIDE 10 MEQ TABER PO PRN (09:09)
[2022-08-23] MEDS ORDERED: POTASSIUM CHLORIDE 40 MEQ, LIDOCAINE 1% 25 MG in NACL 0.9% 250 ML IV PRN (09:25)
[2022-08-23] MEDS: ACETAMINOPHEN 325 MG TAB PO PRN (09:35)
--- NOTE | 2022-08-23 15:57 | NUR ---
08/23/22 RD INITIAL ASSESSMENT COMPLETED PLEASE REFER TO NUTRITION ASSESSMENT UNDER CARE ACTIVITY FOR ESTIMATED NUTRITIONAL NEEDS. 1. CONTINUE CCHO 60 GM DIET TOLERATED 2. RECOMMENDED BANATROL BID FOR DIARRHEA 3. RD PROVIDED GENERAL NUTRITION EDUCATION AND HANDOUTS ON HEALTHY DIET AND CARB COUNTING TO HELP CONTROL BG 4. RD TO FOLLOW-UP 3-5 DAYS, MODERATE RISK REVIEWED BY ZACH GREEN RD
[2022-08-23 16:00] VITALS: BP 110/61
[2022-08-23 20:00] VITALS: BP 120/48
--- NOTE | 2022-08-23 20:00 | NUR ---
Patient's Plan of Care was discussed and reviewed with MANAGER MACHINE: TOYIN MAYES
[2022-08-23 20:35] LABS: BASOPHILS % (AUTO) 0.3 % (0.0-2.0); EOSINOPHILS # (AUTO) 0.2 K/uL (0-0.4); EOSINOPHILS % (AUTO) 2.5 % (0.0-4.0); HEMATOCRIT 26.2 % (36-48); LYMPHOCYTES # (AUTO) 1.5 K/uL (2.5-16.5); LYMPHOCYTES % (AUTO) 18.7 % (20.5-51.1); MEAN CORPUSCULAR HEMOGLOBIN 21 pg (27-31); MEAN CORPUSCULAR HGB CONC 30 g/dL (33-37); MEAN CORPUSCULAR VOLUME 70.2 fL (80-94); MONOCYTES # (AUTO) 0.6 K/uL (0.8-1.0); MONOCYTES % (AUTO) 7.1 % (1.7-9.3); NEUTROPHILS # (AUTO) 5.9 K/uL (1.8-7.7); NEUTROPHILS % (AUTO) 71.4 % (42.2-75.2); PLATELET COUNT (AUTO) 338 K/uL (140-450); RED BLOOD CELL COUNT(AUTO) 3.72 MIL/uL (4.20-5.40); RED CELL DISTRIBUTION WIDTH 23.1 % (11.6-13.7); WHITE BLOOD COUNT (AUTO) 8.3 K/uL (4.8-10.8)
[2022-08-23] MEDS: CHOLESTYRAMINE 4 GM/9 GM PKT PO SCH (21:00)
--- NOTE | 2022-08-23 21:06 | NUR ---
ADMINISTERED DUE MED. SLIDING SCALE INSULIN ADMINISTERED FOR BS 223.
--- NOTE | 2022-08-23 21:15 | NUR ---
RECEIVED REPORT FROM DAY SHIFT NURSE YENI FOR CONTINUITY OF CARE. PT AWAKE IN BED. RESPIRATIONS EVEN AND UNLABORED ON RA. DONE WITH 1 PRBC TRANSFUSION. IV SITE ON LEFT WRIST 22G, SL. CALL LIGHT WITHIN REACH. SAFETY PRECAUTIONS IN PLACE. Addendum: 08/24/22 at 0042 by Jose Luis Adams LVN RECEIVED REPORT AT 1915.
--- NOTE | 2022-08-23 21:44 | NUR ---
PT COMPLAINED OF ABDOMINAL PAIN 01/09. PRN PAIN MED FOR PAIN AND SCHEDULED IV MEDS GIVEN BY RICCARDO DAMIAN. PT TOLERATED WELL. NO ADVERSE REACTION NOTED.
[2022-08-24 04:00] VITALS: BP 119/64
[2022-08-24] MEDS: metroNIDAZOLE 500 MG/NS PREMIX 100 ML IV SCH ×3 (04:23→20:14)
[2022-08-24] MEDS: MORPHINE SULFATE 2 MG/ML SYR IVP PRN (04:34)
--- NOTE | 2022-08-24 04:34 | NUR ---
PT COMPLAINED OF ABD PAIN 01/09. PRN PAIN MED GIVEN BY RN MD ORDERED.
[2022-08-24] MEDS: VANCOMYCIN HCL 25 MG/ML SOLN PO SCH ×3 (06:16→18:07)
[2022-08-24] MEDS: BLOOD GLUCOSE MONITORING 1 DEV DEV FS SCH ×4 (06:38→20:10)
[2022-08-24] MEDS: INSULIN LISPRO SLIDING SCALE 100 UNITS/ML VIAL SUBQ PRN ×4 (06:38→20:10)
--- NOTE | 2022-08-24 06:44 | NUR ---
SLIDING SCALE INSULIN ADMINISTERED FOR BS 193.
--- NOTE | 2022-08-24 07:25 | NUR ---
ENDORSED PT TO DAY SHIFT NURSE MATTHEW FOR CONTINUITY OF CARE. ALL NEEDS MET THROUGHOUT SHIFT. PT IS IN STABLE CONDITION. Addendum: 08/24/22 at 0730 by Jose Luis Adams LVN ENDORSED TO NURSE OLIVER
[2022-08-24 07:33] LABS: BASOPHILS % (AUTO) 0.4 % (0.0-2.0); EOSINOPHILS # (AUTO) 0.2 K/uL (0-0.4); EOSINOPHILS % (AUTO) 2.4 % (0.0-4.0); HEMATOCRIT 27.6 % (36-48); HEMOGLOBIN 8.3 g/dL (12.0-16.0); LYMPHOCYTES # (AUTO) 1.8 K/uL (2.5-16.5); LYMPHOCYTES % (AUTO) 22.3 % (20.5-51.1); MEAN CORPUSCULAR HEMOGLOBIN 21 pg (27-31); MEAN CORPUSCULAR HGB CONC 30 g/dL (33-37); MEAN CORPUSCULAR VOLUME 69.6 fL (80-94); MONOCYTES # (AUTO) 0.5 K/uL (0.8-1.0); NEUTROPHILS # (AUTO) 5.5 K/uL (1.8-7.7); NEUTROPHILS % (AUTO) 68.9 % (42.2-75.2); PLATELET COUNT (AUTO) 335 K/uL (140-450); RED BLOOD CELL COUNT(AUTO) 3.97 MIL/uL (4.20-5.40); RED CELL DISTRIBUTION WIDTH 22.5 % (11.6-13.7)
[2022-08-24 07:35] LABS: ANION GAP 8.5 (8-16); CARBON DIOXIDE 25.2 mmol/L (21-32); CREATININE 0.6 mg/dL (0.6-1.3); POTASSIUM 3.7 mmol/L (3.5-5.1)
--- NOTE | 2022-08-24 08:00 | NUR ---
RECEIVED PATIENT IN BED, RESTING COMFORTABLY, NOT IN ANY FORM OF DISTRESS, ASSESSMENT DONE AND DOCUMENTED, PLAN OF CARE DISCUSSED, NO OTHER COMPLAINS AT THIS TIME.
[2022-08-24] MEDS: PANTOPRAZOLE 40 MG INJ VIAL IVP SCH ×2 (09:42→20:17)
[2022-08-24] MEDS: CHOLESTYRAMINE 4 GM/9 GM PKT PO SCH ×2 (09:43→20:09)
[2022-08-24] MEDS: MORPHINE SULFATE 4 MG/ML SYR IVP PRN ×2 (09:43→18:09)
[2022-08-24] MEDS: MAG SULF 2000 MG/WATER PREMIX 50 ML IV PRN (09:47)
[2022-08-24 12:00] VITALS: BP 114/69
[2022-08-24] MEDS: ONDANSETRON 4 MG/2 ML VIAL IVP PRN ×2 (13:44→20:21)
--- NOTE | 2022-08-24 19:25 | NUR ---
RECEIVED REPORT FROM DAY SHIFT NURSE TRISTA. PT AWAKE, SITTING IN BED. INITIAL ASSESSMENT DONE. RESPIRATIONS EVEN AND UNLABORED ON RA. NO DISTRESS NOTED. NO COMPLAINTS OF PAIN. POC DISCUSSED. CALL LIGGHT WITHIN REACH. SAFETY PRECAUTIONS IN PLACE.
--- NOTE | 2022-08-24 19:30 | NUR ---
Patient's Plan of Care was discussed and reviewed with NIKKO DEAL
[2022-08-24 20:00] VITALS: BP 122/67
--- NOTE | 2022-08-24 20:17 | NUR ---
ADMINISTERED DUE MEDS. PT TOLERATED WELL.
--- NOTE | 2022-08-24 20:33 | NUR ---
ADMINISTERED 2100 PANTOPRAZOLE AND METRONIDAZOLE TO PATIENT. PATIENT WAS COMPLAINING ABOUT NAUSEA. ADMINISTERED ZOFRAN IVP TO PATIENT. INFORMED NIKKO DEAL ABOUT ADMINISTRATION.
--- NOTE | 2022-08-25 03:51 | NUR ---
DID ROUNDS. PT SLEEPING. BREATHING EVEN AND UNLABORED. NO DISTRESS NOTED. SAFETY PRECAUTIONS IN PLACE.
[2022-08-25 04:00] VITALS: BP 112/60
[2022-08-25] MEDS: metroNIDAZOLE 500 MG/NS PREMIX 100 ML IV SCH ×3 (05:33→20:38)
--- NOTE | 2022-08-25 06:00 | NUR ---
PT REPORTED SOFT FORMED BM WITH BRIGHT RED BLOOD. PT SAID SHE FELT SEVERE LOWER BACK PAIN WHEN SHE WAS DEFECATING. PT STATED THAT SHE WAS UPSET BECAUSE SHE WANTED TO GO HOME ALREADY. SHE HASN'T HAD BLOOD IN HER STOOL FOR THE PAST 2 DAYS AND NOW BACK AGAIN. PT NOW COMPLAINING OF 6/10 ABDOMINAL PAIN AND SLIGHT LOWER BACK PAIN. RICCARDO PÉREZ MADE AWARE. V/S WITHIN NORMAL LIMIT.
[2022-08-25] MEDS: MORPHINE SULFATE 2 MG/ML SYR IVP PRN (06:02)
--- NOTE | 2022-08-25 06:10 | NUR ---
ADMINISTERED MORPHINE 2MG TO PATIENT FOR 6/10 PAIN. PATIENT'S BP WAS 107/64, HR 82. PATIENT STATED THAT SHE HAS STARTED SHOWING BLOOD IN HER STOOL. CHECKED PATIENT'S CHART MORPHINE WAS APPROPRIATE TO GIVE. PATIENT HAS MORPHINE 4MG AND 2MG ON FILE. GAVE PATIENT LOWER DOSE OF 2MG DUE TO SBP 107 AND BLEEDING FROM ANAL REGION. INFORMED NURSE TOYIN OF MEDICATION ADMINISTRATION AND DECISION TO GIVE 2MG INSTEAD OF 4MG. REASONING WAS ALSO EXPLAINED TO PATIENT.
[2022-08-25] MEDS: INSULIN LISPRO SLIDING SCALE 100 UNITS/ML VIAL SUBQ PRN ×4 (06:42→20:57)
[2022-08-25] MEDS: BLOOD GLUCOSE MONITORING 1 DEV DEV FS SCH ×4 (06:42→20:55)
--- NOTE | 2022-08-25 06:45 | NUR ---
SLIDING SCALE INSULIN ADMINISTERED FOR BS 235.
[2022-08-25 07:21] LABS: BASOPHILS % (AUTO) 0.3 % (0.0-2.0); EOSINOPHILS # (AUTO) 0.2 K/uL (0-0.4); EOSINOPHILS % (AUTO) 2.2 % (0.0-4.0); HEMATOCRIT 27.2 % (36-48); HEMOGLOBIN 8.3 g/dL (12.0-16.0); LYMPHOCYTES # (AUTO) 1.7 K/uL (2.5-16.5); LYMPHOCYTES % (AUTO) 19.6 % (20.5-51.1); MEAN CORPUSCULAR HEMOGLOBIN 21 pg (27-31); MEAN CORPUSCULAR HGB CONC 31 g/dL (33-37); MEAN CORPUSCULAR VOLUME 69.2 fL (80-94); MONOCYTES # (AUTO) 0.5 K/uL (0.8-1.0); MONOCYTES % (AUTO) 5.7 % (1.7-9.3); NEUTROPHILS # (AUTO) 6.3 K/uL (1.8-7.7); NEUTROPHILS % (AUTO) 72.2 % (42.2-75.2); PLATELET COUNT (AUTO) 350 K/uL (140-450); RED BLOOD CELL COUNT(AUTO) 3.92 MIL/uL (4.20-5.40); RED CELL DISTRIBUTION WIDTH 22.5 % (11.6-13.7); WHITE BLOOD COUNT (AUTO) 8.7 K/uL (4.8-10.8)
--- NOTE | 2022-08-25 07:25 | NUR ---
ENDORSED PT TO DAY SHIFT NURSE ADZE FOR CONTINUITY OF CARE. ALL NEEDS MET THROUGHOUT SHIFT. PT IS IN STABLE CONDITION.
[2022-08-25 07:28] LABS: ANION GAP 10.7 (8-16); CARBON DIOXIDE 26.4 mmol/L (21-32); CREATININE 0.6 mg/dL (0.6-1.3); POTASSIUM 4.1 mmol/L (3.5-5.1)
--- NOTE | 2022-08-25 08:00 | NUR ---
RECEIVED PATIENT IN BED, RESTING COMFORTABLY, NOT IN ANY FORM OF DISTRESS, ASSESSMENT DONE AND DOCUMENTED, PLAN OF CARE DISCUSSED, NO OTHER COMPLAINS AT THIS TIME.
[2022-08-25] MEDS: CHOLESTYRAMINE 4 GM/9 GM PKT PO SCH ×2 (09:08→21:03)
[2022-08-25] MEDS: PANTOPRAZOLE 40 MG INJ VIAL IVP SCH (09:08)
[2022-08-25] MEDS: MORPHINE SULFATE 4 MG/ML SYR IVP PRN ×2 (11:43→18:29)
[2022-08-25] MEDS: VANCOMYCIN HCL 25 MG/ML SOLN PO SCH (17:25)
[2022-08-25] MEDS: ONDANSETRON 4 MG/2 ML VIAL IVP PRN ×2 (17:36→20:31)
[2022-08-25] MEDS ORDERED: VANCOMYCIN 500 MG VIAL PO SCH (18:00)
[2022-08-25 20:00] VITALS: BP 105/53
[2022-08-26] MEDS: VANCOMYCIN HCL 25 MG/ML SOLN PO SCH ×4 (00:16→17:02)
--- NOTE | 2022-08-26 01:06 | NUR ---
PATIENT STABLE SLEEPING AT THIS TIME VITALS SIGNS IN NORMAL LIMITS NOT COMPLAINING OF PAIN
[2022-08-26] MEDS: MORPHINE SULFATE 4 MG/ML SYR IVP PRN (01:28)
[2022-08-26] MEDS: ONDANSETRON 4 MG/2 ML VIAL IVP PRN ×3 (01:28→21:28)
[2022-08-26 04:26] VITALS: BP 121/74
[2022-08-26] MEDS: metroNIDAZOLE 500 MG/NS PREMIX 100 ML IV SCH ×3 (05:01→20:41)
[2022-08-26] MEDS: BLOOD GLUCOSE MONITORING 1 DEV DEV FS SCH ×4 (05:10→20:45)
[2022-08-26] MEDS: INSULIN LISPRO SLIDING SCALE 100 UNITS/ML VIAL SUBQ PRN ×4 (05:10→20:51)
--- NOTE | 2022-08-26 06:25 | NUR ---
PATIENT STABLE NOT COMPLAINING OF PAIN AT THIS TIME VITALS SIGNS IN NORMAL LIMITS
[2022-08-26 07:20] LABS: ANION GAP 10.4 (8-16); CARBON DIOXIDE 27.5 mmol/L (21-32); CREATININE 0.6 mg/dL (0.6-1.3); POTASSIUM 3.9 mmol/L (3.5-5.1)
[2022-08-26 07:52] LABS: BASOPHILS % (AUTO) 0.4 % (0.0-2.0); EOSINOPHILS # (AUTO) 0.2 K/uL (0-0.4); EOSINOPHILS % (AUTO) 2.1 % (0.0-4.0); HEMATOCRIT 27.2 % (36-48); HEMOGLOBIN 8.2 g/dL (12.0-16.0); LYMPHOCYTES # (AUTO) 1.7 K/uL (2.5-16.5); LYMPHOCYTES % (AUTO) 21.3 % (20.5-51.1); MEAN CORPUSCULAR HEMOGLOBIN 21 pg (27-31); MEAN CORPUSCULAR HGB CONC 30 g/dL (33-37); MEAN CORPUSCULAR VOLUME 70.7 fL (80-94); MONOCYTES # (AUTO) 0.5 K/uL (0.8-1.0); MONOCYTES % (AUTO) 5.5 % (1.7-9.3); NEUTROPHILS # (AUTO) 5.8 K/uL (1.8-7.7); NEUTROPHILS % (AUTO) 70.7 % (42.2-75.2); PLATELET COUNT (AUTO) 329 K/uL (140-450); RED BLOOD CELL COUNT(AUTO) 3.84 MIL/uL (4.20-5.40); RED CELL DISTRIBUTION WIDTH 22.6 % (11.6-13.7); WHITE BLOOD COUNT (AUTO) 8.2 K/uL (4.8-10.8)
--- NOTE | 2022-08-26 08:00 | NUR ---
RECEIVED PATIENT IN BED, RESTING COMFORTABLY, NOT IN ANY FORM OF DISTRESS, ASSESSMENT DONE AND DOCUMENTED, PLAN OF CARE DISCUSSED, NO OTHER COMPLAINS AT THIS TI
[2022-08-26] MEDS: PANTOPRAZOLE 40 MG TABEC PO SCH (08:35)
[2022-08-26] MEDS: CHOLESTYRAMINE 4 GM/9 GM PKT PO SCH ×2 (08:35→20:40)
[2022-08-26] MEDS: ACETAMINOPHEN 325 MG TAB PO PRN ×2 (09:54→21:27)
[2022-08-26] MEDS: MAG SULF 2000 MG/WATER PREMIX 50 ML IV PRN (09:54)
[2022-08-26 12:00] VITALS: BP 114/48
--- NOTE | 2022-08-26 14:13 | NUR ---
08/26/22 RD FOLLOW UP COMPLETED PLEASE REFER TO NUTRITION ASSESSMENT UNDER CARE ACTIVITY FOR ESTIMATED NUTRITIONAL NEEDS. 1. CONTINUE CCHO 60 GM DIET TOLERATED 2. MONITOR GI SYMPTOMS AND NUTRITION RELATED LAB VALUES 3. RD TO FOLLOW-UP 7 DAYS, LOW RISK D/T GI SYMPTOMS IMPROVING AND PT WITH 100% PO INTAKE REVIEWED BY ZACH GREEN RD
[2022-08-26 20:00] VITALS: BP 101/59
--- NOTE | 2022-08-26 20:40 | NUR ---
ADMINISTERED SCHEDULED DUE MEDICATIONS. PATIENT AWAKE AOX4. ON ROOM AIR. NO SOB. NO COMPLAINTS OF PAIN. AMBULATORY. CALL LIGHT WITHIN REACH. IV ACCESS ON THE LEFT HAND INTACT AND PATENT.
[2022-08-27 04:00] VITALS: BP 117/66
[2022-08-27] MEDS: VANCOMYCIN HCL 25 MG/ML SOLN PO SCH ×3 (06:02→12:04)
[2022-08-27] MEDS: ACETAMINOPHEN 325 MG TAB PO PRN (06:03)
[2022-08-27] MEDS: INSULIN LISPRO SLIDING SCALE 100 UNITS/ML VIAL SUBQ PRN ×3 (06:38→16:10)
[2022-08-27] MEDS: BLOOD GLUCOSE MONITORING 1 DEV DEV FS SCH ×3 (06:38→16:07)
[2022-08-27 06:55] LABS: ANION GAP 10.6 (8-16); CARBON DIOXIDE 27.3 mmol/L (21-32); CREATININE 0.6 mg/dL (0.6-1.3); POTASSIUM 3.9 mmol/L (3.5-5.1)
[2022-08-27 07:16] LABS: BASOPHILS % (AUTO) 0.5 % (0.0-2.0); EOSINOPHILS # (AUTO) 0.2 K/uL (0-0.4); EOSINOPHILS % (AUTO) 1.6 % (0.0-4.0); HEMATOCRIT 28.2 % (36-48); HEMOGLOBIN 8.6 g/dL (12.0-16.0); LYMPHOCYTES # (AUTO) 1.9 K/uL (2.5-16.5); LYMPHOCYTES % (AUTO) 20.1 % (20.5-51.1); MEAN CORPUSCULAR HEMOGLOBIN 21 pg (27-31); MEAN CORPUSCULAR HGB CONC 30 g/dL (33-37); MEAN CORPUSCULAR VOLUME 70.4 fL (80-94); MONOCYTES # (AUTO) 0.5 K/uL (0.8-1.0); MONOCYTES % (AUTO) 5.7 % (1.7-9.3); NEUTROPHILS # (AUTO) 6.9 K/uL (1.8-7.7); NEUTROPHILS % (AUTO) 72.1 % (42.2-75.2); PLATELET COUNT (AUTO) 374 K/uL (140-450); RED BLOOD CELL COUNT(AUTO) 4.01 MIL/uL (4.20-5.40); RED CELL DISTRIBUTION WIDTH 23.1 % (11.6-13.7); WHITE BLOOD COUNT (AUTO) 9.6 K/uL (4.8-10.8)
--- NOTE | 2022-08-27 07:25 | NUR ---
RECEIVED REPORT FROM NIGHT NURSE BETO FOR CONTINUITY OF CARE. IVF INFUSING WELL. CALL LIGHT KEPT WITHIN REACH. WILL CONTINUE TO MONITOR.
--- NOTE | 2022-08-27 07:28 | NUR ---
GAVE REPORT TO AM NURSE JANA FOR CONTINUITY OF CARE. PATIENT IN STABLE CONDITION. MNURVA
[2022-08-27 08:00] VITALS: BP 107/71
[2022-08-27] MEDS: PANTOPRAZOLE 40 MG TABEC PO SCH (09:21)
--- NOTE | 2022-08-27 09:28 | NUR ---
SCHEDULED MEDICATIONS GIVEN. TOLERATING WELL.
[2022-08-27] MEDS: CHOLESTYRAMINE 4 GM/9 GM PKT PO SCH (11:52)
--- NOTE | 2022-08-27 12:05 | NUR ---
BS CHECK. INSULIN WAS GIVEN PER SLIDING SCALE.
[2022-08-27] MEDS ORDERED: SITA25TA3 PO (13:22)
[2022-08-27] MEDS ORDERED: VANC125C10 PO (13:22)
[2022-08-27] MEDS ORDERED: METF-1243 PO (13:22)
--- NOTE | 2022-08-27 16:07 | NUR ---
BS CHECK. INSULIN WAS GIVEN PER SLIDING SCALE.
--- NOTE | 2022-08-27 16:16 | NUR ---
PT D/C TO HOME. TRANSPORTED BY PRIVATE VEHICLE. AMBULATORY. ID BAND AND IV REMOVED. DISCHARGE PAPERWORK SIGN AND GIVEN TO PT. REMAINS STABLE.
== END 2022-08-27 16:20 | disposition home or self-care (01) | DRG 372 ==
LOC: MED 20:11 → MTU 08-18 03:51 → MIC 08-18 07:35 → MTU 08-19 03:12
PROVIDERS: ADMIT Hospitalist; ATTEND Hospitalist
PROC: 30233N1 Transfusion of Nonautologous Red Blood Cells into Peripheral Vein, Percutaneous Approach (ICD-10-PCS; principal; 2022-08-23)
DX: A04.72 Enterocolitis due to Clostridium difficile, not specified as recurrent (principal); D62 Acute posthemorrhagic anemia; E44.0 Moderate protein-calorie malnutrition; I69.351 Hemiplegia and hemiparesis following cerebral infarction affecting right dominant side; M79.7 Fibromyalgia; I10 Essential (primary) hypertension; Z20.822 Contact with and (suspected) exposure to COVID-19; E66.9 Obesity, unspecified; M19.90 Unspecified osteoarthritis, unspecified site; N20.0 Calculus of kidney; E11.65 Type 2 diabetes mellitus with hyperglycemia; Z98.891 History of uterine scar from previous surgery; Z98.82 Breast implant status; Z87.19 Personal history of other diseases of the digestive system; Z80.0 Family history of malignant neoplasm of digestive organs; Z87.74 Personal history of (corrected) congenital malformations of heart and circulatory system; Z68.34 Body mass index [BMI] 34.0-34.9, adult
CPT/HCPCS: 36415; 36430; 80048; 80053; 81001; 82272; 82728; 82948; 83036; 83540; 83690; 83735; 85025; 86886; 86900; 86901; 86920; 87015; 87040; 87045; 87070; 87081; 89055; 96365; 96367; 96375; 99285; C9113; J1650; J1956; J2001; J2060; J2270; J2405; J3475; J3480; J3490; J7030; P9016

== ENCOUNTER 2023-06-14 08:39 | Emergency (ER) | payer OTHER ==
[~2023-06-14] VITALS: Ht 170.2 cm; Wt 108.9 kg
[~2023-06-14 08:39] MED LIST changes: +FOLI1TAB90 PO; +FREM225A SQ; -IBUP-2213 PO; +METF-1243 PO; +METH-1213 PO; -MIRABULK PO; -ROB PO; +SITA25TA3 PO; +VANC125C10 PO
[2023-06-14 09:12] VITALS: BP 122/79; PULSE 83; RESP 18; TEMP 97.9; O2SAT 97
[2023-06-14] MEDS ORDERED: KETOROLAC 30 MG/ML VIAL IM ONE (10:25)
[2023-06-14] MEDS ORDERED: LID5T TP (11:10)
[2023-06-14] MEDS ORDERED: CYCL-711 PO (11:10)
[2023-06-14] MEDS ORDERED: IBUP-2213 PO (11:10)
[2023-06-14 12:38] VITALS: BP 122/79; PULSE 83; RESP 18; TEMP 97.9; O2SAT 97
== END 2023-06-14 12:40 | disposition home or self-care (01) ==
LOC: MED 08:39
DX: S16.1XXA Strain of muscle, fascia and tendon at neck level, initial encounter (principal); S20.211A Contusion of right front wall of thorax, initial encounter; I25.10 Atherosclerotic heart disease of native coronary artery without angina pectoris; Z86.73 Personal history of transient ischemic attack (TIA), and cerebral infarction without residual deficits; Z79.899 Other long term (current) drug therapy; W18.30XA Fall on same level, unspecified, initial encounter; Y93.89 Activity, other specified; Y92.89 Other specified places as the place of occurrence of the external cause; Y99.8 Other external cause status
CPT/HCPCS: 71101; 72050; 72072; 96372; 99284; J1885

== ENCOUNTER 2024-03-16 09:34 | Emergency (ER) | payer OTHER ==
[~2024-03-16] VITALS: Ht 170.2 cm; Wt 102.6 kg
[~2024-03-16 09:34] MED LIST changes: +CYCL-711 PO; +IBUP-2213 PO; +LID5T TP
[2024-03-16 10:19] VITALS: BP 100/65; PULSE 126; RESP 19; TEMP 97.7; O2SAT 96
[2024-03-16] MEDS: NACL 0.9% 1,000 ML IV ONE ×2 (11:19→12:27)
[2024-03-16] MEDS: KETOROLAC 30 MG/ML VIAL IVP ONE (11:20)
[2024-03-16 12:13] LABS: APPEARANCE,URINE CLOUDY (CLEAR); BILIRUBIN,URINE 1+ (NEGATIVE); BLOOD, URINE 3+ (NEGATIVE); LEUKOCYTE ESTERASE ,URINE 3+ (NEGATIVE); NITRITE, URINE POSITIVE (NEGATIVE); PROTEIN,URINE 3+ (NEGATIVE); UGLUCOSE NEGATIVE (NEGATIVE)
[2024-03-16 12:19] LABS: COLOR,URINE AMBER (YELLOW)
[2024-03-16 12:24] LABS: ICTOTEST NEGATIVE (NEGATIVE)
[2024-03-16 12:25] LABS: RBC,URINE 11-20 (MOD) /HPF (0-5)
[2024-03-16 12:26] LABS: BACTERIA,URINE 10-30 (MOD) /HPF (None Seen); MUCUS,URINE 1+ /LPF (None Seen); SQUAMOUS EPITHELIAL CELL,UR 0-3 (FEW) /LPF (0-3 (FEW))
[2024-03-16 12:54] LABS: BASOPHILS % (AUTO) 0.2 % (0.0-2.0); EOSINOPHILS % (AUTO) 0.2 % (0.0-4.0); HEMATOCRIT 30.1 % (36-48); HEMOGLOBIN 9.5 g/dL (12.0-16.0); LYMPHOCYTES # (AUTO) 1.4 K/uL (2.5-16.5); LYMPHOCYTES % (AUTO) 6.3 % (20.5-51.1); MEAN CORPUSCULAR HEMOGLOBIN 26 pg (27-31); MEAN CORPUSCULAR HGB CONC 31 g/dL (33-37); MEAN CORPUSCULAR VOLUME 82.5 fL (80-94); MONOCYTES # (AUTO) 1.6 K/uL (0.8-1.0); MONOCYTES % (AUTO) 7.4 % (1.7-9.3); NEUTROPHILS # (AUTO) 18.5 K/uL (1.8-7.7); NEUTROPHILS % (AUTO) 85.9 % (42.2-75.2); PLATELET COUNT (AUTO) 291 K/uL (140-450); RED BLOOD CELL COUNT(AUTO) 3.65 MIL/uL (4.20-5.40); RED CELL DISTRIBUTION WIDTH 17.1 % (11.6-13.7); WHITE BLOOD COUNT (AUTO) 21.5 K/uL (4.8-10.8)
[2024-03-16 13:02] LABS: CALCIUM 8.8 mg/dL (8.5-10.1); CARBON DIOXIDE 20.6 mmol/L (21-32); CREATININE 0.9 mg/dL (0.6-1.3); POTASSIUM 3.6 mmol/L (3.5-5.1)
[2024-03-16] MEDS: MORPHINE SULFATE 4 MG/ML SYR IVP ONE ×2 (13:05→16:33)
[2024-03-16 13:19] LABS: ALBUMIN 2.5 g/dL (3.4-5.0); BILIRUBIN,DIRECT 0.4 mg/dL (0.0-0.3); TOTAL BILIRUBIN 0.8 mg/dL (0.0-1.0)
[2024-03-16] MEDS ORDERED: CIPR500T4 PO (15:24)
[2024-03-16] MEDS ORDERED: ACET-8905 PO (15:24)
[2024-03-16] MEDS ORDERED: ONDA8TAB87 PO (15:24)
[2024-03-16] MEDS ORDERED: HYDR-5071 PO (16:22)
[2024-03-16 16:25] VITALS: BP 113/71; PULSE 114; RESP 24; TEMP 98.7; O2SAT 97
[2024-03-18] MEDS ORDERED: NITR100C7 PO (16:22)
== END 2024-03-16 16:25 | disposition home or self-care (01) ==
LOC: MED 09:34
DX: N12 Tubulo-interstitial nephritis, not specified as acute or chronic (principal); Z86.73 Personal history of transient ischemic attack (TIA), and cerebral infarction without residual deficits; Z90.49 Acquired absence of other specified parts of digestive tract; Z98.890 Other specified postprocedural states; Z79.1 Long term (current) use of non-steroidal anti-inflammatories (NSAID); Z79.2 Long term (current) use of antibiotics; Z79.899 Other long term (current) drug therapy
CPT/HCPCS: 36415; 74176; 80048; 80076; 81001; 81025; 83690; 85025; 87086; 87186; 96361; 96374; 96375; 96376; 99285; J1885; J2270; J7030